=== PATIENT | male | born 1965 | race Caucasian/White ===

== ENCOUNTER 2018-02-10 20:43 | Emergency (ER) | payer OTHER ==
[~2018-02-10] VITALS: Ht 170.2 cm; Wt 90.7 kg
[2018-02-10] MEDS ORDERED: NORCO 5-325 TA1 EACH PO (22:08)
[2018-02-10 22:49] VITALS: BP 130/86
== END 2018-02-10 22:51 | disposition home or self-care (01) ==
LOC: M.ERS 20:43
DX: S20.211A Contusion of right front wall of thorax, initial encounter (principal); F17.210 Nicotine dependence, cigarettes, uncomplicated; W22.8XXA Striking against or struck by other objects, initial encounter; Y93.89 Activity, other specified; Y92.89 Other specified places as the place of occurrence of the external cause; Y99.8 Other external cause status

== ENCOUNTER 2018-06-17 22:52 | Emergency (ER) | payer OTHER ==
[~2018-06-17] VITALS: Ht 170.2 cm; Wt 90.7 kg
[~2018-06-17 22:52] MED LIST: NORCO 5-325 TA1 EACH PO
[2018-06-18] MEDS ORDERED: MEDROLDOSEPACK PO (00:39)
[2018-06-18] MEDS ORDERED: ZANAFLEX4 MG PO (00:39)
[2018-06-18] MEDS ORDERED: IBU600 MG PO (00:39)
[2018-06-18 00:48] VITALS: BP 148/82
== END 2018-06-18 00:49 | disposition home or self-care (01) ==
LOC: M.ERS 22:52
DX: M54.16 Radiculopathy, lumbar region (principal); G89.29 Other chronic pain; M54.5 Low back pain; F17.210 Nicotine dependence, cigarettes, uncomplicated; X58.XXXA Exposure to other specified factors, initial encounter; Y92.89 Other specified places as the place of occurrence of the external cause; Y93.89 Activity, other specified; Y99.8 Other external cause status

== ENCOUNTER 2019-05-21 02:57 | Emergency (ER) | payer OTHER ==
[~2019-05-21] VITALS: Ht 170.2 cm; Wt 95.3 kg
[~2019-05-21 02:57] MED LIST changes: +IBU600 MG PO; +MEDROLDOSEPACK PO; +ZANAFLEX4 MG PO
[2019-05-21 03:18] LABS: ABSOLUTE BASOPHILS 0.1 thou/uL (0.0-0.2); ABSOLUTE EOSINOPHILS 0.2 thou/uL (0.0-0.7); ABSOLUTE LYMPHOCYTES 1.5 thou/uL (0.8-5.3); ABSOLUTE MONOCYTES 0.6 thou/uL (0.0-1.2); ABSOLUTE NEUTROPHILS 6.1 thou/uL (1.6-8.1); BASOPHILS 0.8 %; EOSINOPHILS 2.7 %; HEMATOCRIT 46.4 % (42.0-52.0); HEMOGLOBIN 15.6 gm/dL (14.0-18.0); LYMPHOCYTES 17.8 %; MCH 30.1 pg (26.0-34.0); MCHC 33.7 g/dL (28.0-37.0); MCV 89.4 fL (80.0-100.0); MPV 8.1 fl. (7.2-11.1); NUCLEATED RBCS 0 /100WBC; PLATELET COUNT* 367 thou/uL (150-400); POLYS 71.7 %; RBC 5.19 mil/uL (4.50-6.00); RDW-CV 13.2 % (10.5-14.5); WBC 8.6 thou/uL (4.0-11.0)
[2019-05-21 03:31] LABS: SALICYLATE 2.7 mg/dL (2.8-20.0)
[2019-05-21 03:32] LABS: ACETAMINOPHEN < 2 ug/mL (10-30); ALCOHOL < 10 mg/dL (<10)
[2019-05-21 03:33] LABS: ANION GAP 11 mmol/L (7-16); BUN 19 mg/dL (7-18); CALCIUM 9.5 mg/dL (8.5-10.1); CHLORIDE 103 mmol/L (98-107); CO2 26 mmol/L (21-32); CREATININE 1.6 mg/dL (0.6-1.3); GLUCOSE 167 mg/dL (70-99); POTASSIUM 3.4 mmol/L (3.5-5.1); SODIUM 140 mmol/L (136-145)
[2019-05-21 03:43] LABS: ALBUMIN 4.3 g/dL (3.4-5.0); ALKALINE PHOSPHATASE 83 U/L (46-116); SGOT 16 U/L (15-37); SGPT 35 U/L (30-65); TOTAL BILIRUBIN 0.4 mg/dL (<0.1-1.0); TOTAL PROTEIN 7.7 g/dL (6.4-8.2); TROPONIN-I LEVEL <0.06 ng/mL (<0.06)
[2019-05-21 06:35] VITALS: BP 127/70
--- NOTE | 2019-05-22 11:01 | EKG ---
[place] [address] ELECTROCARDIOGRAM REPORT Name: FROILAN MURRAY Room: [facility]#: [id number] Admission: 05/21/19 Attend Phys: Discharge: 05/21/19 Date of : 63 Report #: [id number] THIS REPORT FOR: //name// [facility] ED Test Date: 2019-05-21 Test Time: 03:14:09 Pat Name: FROILAN MURRAY Department: Room: Gender: M Job Developer: : 1965 Requested By: Bharath Arriola Order Number: [id number] MD: Thang Leyva Measurements Intervals [place] Rate: 92 P: 50 FL: 158 QRS: 2 QRSD: 96 T: 33 QT: 376 QTc: 466 Interpretive Statements Sinus rhythm Probable left atrial enlargement No previous ECG available for comparison Electronically Signed On 05-22-2019 11:01:26 CDT by Thang Leyva [email or web address] <ELECTRONICALLY SIGNED> By: Thang Leyva MD, [facility] 05/22/19 1101 0314 0314 Thang Leyva MD, FACC /EPI
== END 2019-05-21 06:37 | disposition home or self-care (01) ==
LOC: M.ERS 02:57
PROVIDERS: Emergency Medicine
DX: F15.90 Other stimulant use, unspecified, uncomplicated (principal); F22 Delusional disorders; F17.210 Nicotine dependence, cigarettes, uncomplicated